=== PATIENT | female | born 1970 | race Caucasian/White ===

== ENCOUNTER 2016-11-01 13:57 | Emergency (ER) | payer MEDICARE ==
[~2016-11-01] VITALS: Ht 172.7 cm; Wt 106.0 kg
[~2016-11-01 13:57] MED LIST: CITA10SO PO; OXYB5TAB PO
[2016-11-01] MEDS ORDERED: SODIUM CHLOR 0.9% 1000 ML INJ 1,000 ML IV SCH (14:23)
--- NOTE | 2016-11-01 14:28 | PD ---
HPI Chief Complaint: allergic reaction Time Seen by Provider: 14:19 Travel History International Travel<30 days: No Contact w/Intl Traveler<30days: No Traveled to known affect area: No History of Present Illness HPI 46-year-old female here for evaluation of an allergic reaction. The patient was bitten on her left foot by several ants about an hour prior to arrival. She has diffuse pruritus, increased redness and swelling to her left foot/ankle and chest tightness/difficulty breathing. No nausea or vomiting. No abdominal pain. She took some Benadryl at home without improvement in symptoms. PFSH Past Medical History Cerebrovascular Accident: Yes (1998 TIA, 2000 & 2000 CVA) Diminished Hearing: No : 4 Para: 4 Miscarriage: 0 : 0 Past Surgical History Other Surgery: Yes (CARDIOSEAL IMPLANT) Social History Alcohol Use: Yes (OCC) Tobacco Use: Yes (1 PPD) Substance Use: No Allergies-Medications (Allergen,Severity, Reaction): Coded Allergies: fire ant (Verified Allergy, Severe, HIVES, 11/01/16) bee venom protein (honey bee) (Verified Allergy, Intermediate, SWELLING, ) Reported Meds & Prescriptions Reported Meds & Active Scripts Active Prednisone 50 Mg Tab 50 Mg PO DAILY 5 Days Epipen 2-Corey Inj (Epinephrine) 0.3 Mg/0.3 Ml Pfpen 0.3 Mg IM ONCE PRN Reported Lasix (Furosemide) 40 Mg Tab 40 Mg PO DAILY PRN Simvastatin 40 Mg Tab 40 Mg PO HS Lorazepam 0.5 Mg Tab 0.5 Mg PO DAILY PRN Medrol Dosepak (Methylprednisolone) 4 Mg Dspk 4 Mg PO DIRECTED Per Pharmacist direction Levothyroxine (Levothyroxine Sodium) 25 Mcg Tab 25 Mcg PO DAILY Oxybutynin ER 24 HR (Oxybutynin Chloride) 10 Mg Tab 10 Mg PO DAILY Citalopram (Citalopram Hydrobromide) 40 Mg Tab 40 Mg PO DAILY Review of Systems Except as stated in HPI: all other systems reviewed are Neg Physical Exam Narrative GENERAL: Well-developed, well-nourished, appears anxious SKIN: Focused skin assessment warm/dry. Left foot/ankle with several approximately 1 cm circular raised areas which were likely ambulates with surrounding erythema and warmth/hive-like lesions. HEAD: Atraumatic. Normocephalic. EYES: Pupils equal and round. No scleral icterus. No injection or drainage. ENT: Mucous membranes pink and moist. No tongue or lip swelling. No drooling or stridor. NECK: Trachea midline. No JVD. CARDIOVASCULAR: Regular rate and rhythm. RESPIRATORY: No accessory muscle use. Clear to auscultation. Breath sounds equal bilaterally. GASTROINTESTINAL: Abdomen soft, non-tender, nondistended. MUSCULOSKELETAL: No obvious deformities. No clubbing. No cyanosis. No edema. NEUROLOGICAL: Awake and alert. No obvious cranial nerve deficits. Motor grossly within normal limits. Normal speech. PSYCHIATRIC: Appropriate mood and affect; insight and judgment normal. Data Data Last Documented VS Vital Signs Date Time Temp Pulse Resp B/P (MAP) Pulse Ox O2 Delivery O2 Flow Rate FiO2 11/01/16 16:54 72 16 118/71 (87) 97 Room Air 11/01/16 14:30 97.5 Orders Orders Ecg Monitoring (11/01/16 14:23) Iv Access Insert/Monitor (11/01/16 14:23) Oximetry (11/01/16 14:23) Methylprednisolone So Succ Inj (Solumedr (11/01/16 14:30) Famotidine Inj (Pepcid Inj) (11/01/16 14:30) Sodium Chlor 0.9% 1000 Ml Inj (Ns 1000 M (11/01/16 14:23) Sodium Chloride 0.9% Flush (Ns Flush) (11/01/16 14:30) Epinephrine (1:1000) Inj (Adrenalin (1:1 (11/01/16 14:30) Electrocardiogram (11/01/16 ) MDM Medical Decision Making Medical Screen Exam Complete: Yes Emergency Medical Condition: Yes Differential Diagnosis Anaphylaxis, allergic reaction Narrative Course Patient was given IM epinephrine and about 15 minutes later had significant improvement in pruritus. She also had improvement in urticarial/hive-like lesions on her left leg/foot/ankle as well as resolution of tightness in her chest/shortness of breathing. She was also given a dose of IV Solu-Medrol and IV Pepcid. She will be observed in the emergency department for 4 hours. Patient was observed in the emergency department for 3 hours after receiving IM epinephrine with complete resolution of symptoms. She will be discharged home with a prescription for an EpiPen as well as prednisone. She has a follow-up with her primary care physician in one week. She was informed on when to return to the emergency department and how to use the EpiPen. She was informed on when to return to the emergency dependent. She verbalizes understanding and agreement with plan. Diagnosis Primary Impression: Allergic reaction Qualified Codes: T78.40XA - Allergy, unspecified, initial encounter Referrals: Primary Care Physician 1 week Additional Instructions: Follow-up with your primary care physician this week. Return to the emergency department for worsening symptoms or any other concerns. Scripts Prednisone (Prednisone) 50 Mg Tab 50 MG PO DAILY for 5 Days, TAB 0 Refills Prov: Les Baker MD 11/01/16 Epinephrine Inj (Epipen 2-Corey Inj) 0.3 Mg/0.3 Ml Pfpen 0.3 MG IM ONCE Y for ALLERGIC REACTION, #1 PACK 0 Refills Prov: Les Baker MD 11/01/16 Disposition: 01 DISCHARGE HOME Condition: Stable Les Baker MD Nov 01, 2016 14:28
[2016-11-01 14:30] VITALS: BP 132/78; PULSE 84; RESP 16; TEMP 97.5; O2SAT 98
[2016-11-01] MEDS ORDERED: EPINEPHrine HCL (1:1000) 1 MG/ML VIAL IM ONE (14:30)
[2016-11-01] MEDS ORDERED: SODIUM CHLORIDE 0.9% FLUSH 10 ML FLUSH IV FLUSH PRN (14:30)
[2016-11-01] MEDS ORDERED: methylPREDNISolone SOD SUCC 125 MG/2 ML VIAL IVP ONE (14:30)
[2016-11-01] MEDS ORDERED: FAMOTIDINE 20 MG/2 ML VIAL IV PUSH ONE (14:30)
[2016-11-01] MEDS ORDERED: MEDR4PAK PO (14:44)
[2016-11-01] MEDS ORDERED: LEVO25TA4 PO (14:44)
[2016-11-01] MEDS ORDERED: LORA-373 PO (14:44)
[2016-11-01] MEDS ORDERED: FURO1TAB60 PO (14:44)
[2016-11-01] MEDS ORDERED: OXYB10TA PO (14:44)
[2016-11-01] MEDS ORDERED: SIMV40TA PO (14:44)
[2016-11-01] MEDS ORDERED: CITA40TA4 PO (14:44)
[2016-11-01 14:49] VITALS: RESP 16; O2SAT 99
[2016-11-01 16:54] VITALS: BP 118/71; PULSE 72; RESP 16; O2SAT 97
[2016-11-01] MEDS ORDERED: PRED50 PO (17:12)
[2016-11-01] MEDS ORDERED: EPIP0.3I IM (17:12)
== END 2016-11-01 17:57 | disposition home or self-care (01) ==
LOC: PHED 13:57
DX: T78.40XA Allergy, unspecified, initial encounter (principal); Z86.73 Personal history of transient ischemic attack (TIA), and cerebral infarction without residual deficits; F17.210 Nicotine dependence, cigarettes, uncomplicated
CPT/HCPCS: 96361; 96372; 96374; 96375; 99284; J0171; J2930; J7030